=== PATIENT | female | born 1980 | race African-American/Black ===

== ENCOUNTER 2020-05-31 10:45 | Outpatient (CLI) | payer BC ==
--- NOTE | 2020-05-31 14:13 | MRI ---
MRI OF BRAIN WITH AND WITHOUT CONTRAST: 05/31/20 INDICATIONS: Paresthesia of skin. No comparison. FINDINGS: Ventricles have normal size and position. No evidence of restricted diffusion. No evidence of mass or edema. No white matter abnormality. No abnormal enhancement. The intracranial internal carotid arteries, cerebral arteries, and dural venous sinuses appear patent . The paranasal sinuses and mastoids are clear. IMPRESSION: Unremarkable MRI of brain. POS: AH
== END 2020-05-31 10:46 | disposition home or self-care (01) ==
LOC: SCSMRI 10:45
PROVIDERS: ATTEND Nurse Practitioner Acute Care
DX: R20.2 Paresthesia of skin (principal)
CPT/HCPCS: 70553